=== PATIENT | male | born 1970 | race Caucasian/White ===

== ENCOUNTER 2022-07-11 07:43 | Day surgery (SDC) | payer OTHER, SELFPAY ==
[2022-07-04 10:43] VITALS: BMI 26.4
[2022-07-11 08:25] VITALS: BP 123/83; PULSE 54; RESP 20; TEMP 36.4; O2SAT 98
--- NOTE | 2022-07-11 08:40 | P.PNAN_ITS ---
Anes - Initial Pre Proc Eval Procedure: Operation Date: 07/11/22 09:30 Proposed Procedures p Screening Colonoscopy - Eron Cortes MD Date/Time: 07/11/22 08:40 Surgeon: Eron Cortes MD Pre Op Diagnosis: Neoplasm Screening Patient Data Age: 51 Gender: M Height: 1.85 m Weight: 91 kg Allergies Allergy/AdvReac Type Severity Reaction Status Date / Time No Known Allergies Allergy Verified 05/17/22 12:09 Home Medications Medication Instructions Recorded Confirmed Type No Home Medications 07/04/22 07/04/22 History Patient hx anesthesia problems: none Family hx anesthesia problems: none Results Review: All pre-operative results and documents have been reviewed as part of the pre- operative evaluation. [facility] Surgical History Surgical History (Updated 07/11/22 @ 08:40 by Anoop Veloz MD) History of shoulder surgery Family History Family History Other Family history of lung cancer Family history of lymphoma Social History Social History Smoking status: Never smoker Alcohol intake: current Alcohol use details: one a day Substance use: never Substance use type: does not use Lack of Transportation: No Lack of Food: Never True Current Housing: I Have Housing Concerned About Future Housing: No Difficulty Paying Gas/Electric Bills: No Difficulty Paying for Meds: No Currently Unemployed: No Education: Master's Degree or Higher Difficulty w/ Childcare or Family Care: No Living arrangements: with family Spiritual care concerns: No Anes - Eval Final PreProcedure Day of Procedure 07/11/22 08:40 Patient weight: normal Heart: regular rate and rhythm Lungs: clear to auscultation Airway: Mallampati scale Neurological: alert and oriented Last oral intake: >/= 8 hours ASA classification: I Emergent: no Anesthetic plan: proceed Anesthesia type and monitoring: general GIVS and standard monitoring Results Review: All pre-operative results and documents have been reviewed as part of the pre- operative evaluation. Informed Consent: The patient's anesthetic plan and its attendant risks and benefits were d iscussed with the patient/family/POA. Questions were solicited and answers provided to the satisfaction of the patient/family/POA.
[2022-07-11] MEDS: LACTATED RINGERS 1,000 ML 150 ML IV CONT (08:48)
--- NOTE | 2022-07-11 09:08 | PM.HPGS ---
History of Present Illness History of Present Illness Consent: Risks, benefits, and alternatives have been discussed and questions answered. Patient agrees to proceed with procedure. Chief complaint: Neoplasm Screening Narrative: Eliseo Sapp is a 51 year old male here for first screening colonoscopy Review of Systems Constitutional: Constitutional: Denies headache(s) and Denies weakness Eyes: Eyes: Denies blurry vision ENT: Reports Normal hearing present, Denies headache(s) and Denies neck pain Cardiovascular: Cardiovascular: Denies chest pain and Denies dyspnea Respiratory: Respiratory: Denies dyspnea Gastrointestinal: Gastrointestinal: Reports no additional gastrointestinal complaints Genitourinary: Genitourinary: Denies dysuria Musculoskeletal: Musculoskeletal: Denies neck pain Integumentary/Breasts: Skin/Breast: Denies dry skin Neurologic: Reports Normal hearing present, Denies headache(s) and Denies weakness Psychiatric: Psychiatric: Denies anxiety Endocrine: Endocrine: Denies change in body appearance Hematologic/Lymphatic: Hematologic/Lymphatic: Denies easy bleeding Allergic/Immunologic: Allergic/Immunologic: Denies urticaria PMFSH Surgical History Surgical History (Updated 07/11/22 @ 08:40 by Anoop Veloz MD) History of shoulder surgery Family History Family History Other Family history of lung cancer Family history of lymphoma Social History Social History Smoking status: Never smoker Alcohol intake: current Alcohol use details: one a day Substance use: never Substance use type: does not use Lack of Transportation: No Lack of Food: Never True Current Housing: I Have Housing Concerned About Future Housing: No Difficulty Paying Gas/Electric Bills: No Difficulty Paying for Meds: No Currently Unemployed: No Education: Master's Degree or Higher Difficulty w/ Childcare or Family Care: No Living arrangements: with family Spiritual care concerns: No Meds Home Medications and Allergies Home Medications Medication Instructions Recorded Confirmed Type No Home Medications 07/04/22 07/11/22 History Allergies Allergy/AdvReac Type Severity Reaction Status Date / Time No Known Allergies Allergy Verified 07/11/22 08:59 Vital Signs Vital Signs - 24 hr 07/11/22 08:25 Temperature 97.5 F L Pulse Rate 54 L Respiratory Rate 20 Blood Pressure 123/83 Pulse Oximetry 98 Oxygen Delivery Room Air Exam Const: General: comfortable and no acute distress HENMT: Face/Nose/Sinus: Normal nares present Eyes: General: appearance normal, both eyes and all related structures Neck: Neck: no JVD Resp: Auscultation: clear to auscultation bilaterally Cardio: Rate: regular rate Rhythm: regular rhythm GI: Inspection: non-distended GI Palp: Yes Soft to palpation Skin: General skin exam: normal color Neuro: General: gait normal Speech: normal speech Extrem: General: normal to inspection Psych: Mental Status: mental status grossly normal Assessment and Plan Assessment and plan (1) Screening for colon cancer: Code(s): Z12.11 - Encounter for screening for malignant neoplasm of colon Status: Acute Assessment and Plan: colonoscopy
[2022-07-11 09:26] VITALS: BP 96/64; PULSE 60; RESP 16; O2SAT 97
[2022-07-11 09:36] VITALS: BP 102/64; PULSE 48; RESP 16; O2SAT 99
--- NOTE | 2022-07-11 09:36 | WPDANESPN ---
Anes - Prog Note Post-Op Date/Time: 07/11/22 09:36 Cardiovascular status: normal Respiratory status: normal Airway patency: baseline Mental status: baseline Post-Op hydration status: normal Vital Signs: Last Vital Signs Temp 36.4 C L 07/11/22 08:25 Pulse 54 L 07/11/22 08:25 Resp 20 07/11/22 08:25 BP 123/83 07/11/22 08:25 Pulse Ox 98 07/11/22 08:25 O2 Del Method Room Air 07/11/22 08:25 Pain Score (VAS): 0/10 I/O: Intake & Output 07/10/22 07/11/22 07/11/22 23:59 07:59 15:59 Intake Total 300 Balance 300 Patient Feedback: Patient satisfied with anesthetic care.
[2022-07-11 09:46] VITALS: BP 108/76; PULSE 45; RESP 16; O2SAT 99
== END 2022-07-11 10:10 | disposition home or self-care (01) ==
PROVIDERS: Visit Provider Internal Medicine Gastroenterology
PROC: 0DJD8ZZ Inspection of Lower Intestinal Tract, Via Natural or Artificial Opening Endoscopic (ICD-10-PCS; CPT 45378; principal; 2022-07-11 09:30)
DX: Z12.11 Encounter for screening for malignant neoplasm of colon (principal)
CPT/HCPCS: 45378

== ENCOUNTER 2023-07-12 08:36 | Outpatient (CLI) | payer OTHER, SELFPAY ==
--- NOTE | 2023-07-19 17:42 | WPDHOMESLEEP ---
Sleep Study - Home Unattended Date of Study: 07/12/23 Ordering Provider: Destiny Macdonald NP Interpreting Provider: Ariana Hill, DO Home Sleep Study Type: Watch PAT Height: 1.85 m Weight: 95.254 kg Body Mass Index: 27.7 Neck Circumference (inches): 14.5 [place]: 2 Reason for Sleep Study Loud snoring Sleep History The patient is a 52-year-old male that had a sleep study ordered by his primary care for evaluation of sleep apnea. He rarely awakens from sleep short of breath. He denies awakening at night with heartburn, belching or cough. He frequently snores and it is frequently loud enough that others complain. He denies having trouble sleeping when he has a cold. He denies waking up gasping for air throughout the night. He denies having breathing problems at night observed by himself or others. He frequently sweats excessively at night. He rarely notices heart palpitations or irregular heartbeats during the night. He rarely falls asleep during the day and never while driving. He denies cataplexy. He denies having trouble at school or work due to sleepiness. He occasionally experiences vivid dreamlike scenes upon awakening or falling asleep. He denies feeling afraid of going to sleep. He denies having nightmares. He rarely remembers his dreams. He rarely has thoughts racing through his mind. He denies feeling sad or depressed. He denies having anxiety. He denies having muscular tension. He rarely notices parts of his body jerk. He denies kicking during the night. He denies having crawling and aching feelings in his legs and denies having leg pain during the night. He denies grinding his teeth during sleep and denies awakening with morning jaw pain. He denies being bothered by pain during the day and denies being awakened by pain during the night. He rarely wakes up feeling stiff in the morning. He rarely wakes up with sore or achy muscles. He rarely wakes up with pain in the neck, spine and other joints. He goes to bed between 11:00 p.m. to 12:00 a.m. on weekdays and between 1-2 a.m. on the weekends. It takes him 10 minutes to fall asleep. He wakes up once at most throughout the night to urinate and is able to fall asleep relatively quickly. He wakes up between 5:30-6 a.m. on weekdays and at 9:00 a.m. on the weekends. He typically gets 6 hours of sleep per night. He does not stay in bed very long after waking up in the morning. He currently lives with his and 2 children. He denies consuming any caffeinated beverages within 2 hours of bedtime. He denies engaging in physical exercise before bedtime. He will read and watch television before falling asleep. He denies taking naps in the afternoon or the evening. He will consume caffeinated beverages throughout the day. He does consume alcoholic beverages. He denies tobacco and recreational drug PMFSH Surgical History Surgical History History of shoulder surgery Family History Family History Father Malignant neoplasm of prostate Other Family history of lung cancer Family history of lymphoma Social History Social History Smoking status: Never smoker Alcohol intake: current Alcohol use details: one a day Substance use: never Substance use type: does not use Living arrangements: with family Spiritual care concerns: No Medications Home Medications Medication Instructions Recorded Confirmed Type No Home Medications 07/04/22 07/05/23 History Sleep Procedure The sleep study was completed using [employer] a technically adequate device with seven channels: peripheral arterial tone, actigraphy, body position, snore, respiratory movement, pulse oximetry, sleep staging, and heart rate. Prior to using the device, the patient received verbal and written inst
[2023-07-19 17:51] VITALS: BMI 27.7
== END 2023-07-14 07:30 | disposition home or self-care (01) ==
LOC: ANHCSM 08:38
PROVIDERS: PCP Internal Medicine; Visit Provider Nurse Practitioner
DX: G47.33 Obstructive sleep apnea (adult) (pediatric) (principal); R40.0 Somnolence
CPT/HCPCS: 95800